=== PATIENT | male | born 1965 | race African-American/Black ===

== ENCOUNTER 2022-02-12 18:57 | Emergency (ER) | payer MEDICAID ==
[~2022-02-12] VITALS: Ht 177.8 cm; Wt 86.2 kg
[2022-02-12 19:03] VITALS: BP 205/76
--- NOTE | 2022-02-12 19:26 | NUR ---
Dr. Ibarra examining patient at [facility].
[2022-02-12 20:03] LABS: BASOPHILS % (AUTO) 0.6 % (0.0-2.0); EOSINOPHILS # (AUTO) 0.1 K/uL (0-0.4); EOSINOPHILS % (AUTO) 1.1 % (0.0-4.0); HEMATOCRIT 44.7 % (36-52); HEMOGLOBIN 15.4 g/dL (12.0-18.0); LYMPHOCYTES # (AUTO) 1.7 K/uL (2.0-11.5); LYMPHOCYTES % (AUTO) 25.6 % (20.5-51.1); MEAN CORPUSCULAR HEMOGLOBIN 33 pg (27-31); MEAN CORPUSCULAR HGB CONC 35 g/dL (33-37); MEAN CORPUSCULAR VOLUME 95.7 fL (80-94); MONOCYTES # (AUTO) 0.4 K/uL (0.8-1.0); MONOCYTES % (AUTO) 6.2 % (1.7-9.3); NEUTROPHILS # (AUTO) 4.4 K/uL (1.8-7.7); NEUTROPHILS % (AUTO) 66.5 % (42.2-75.2); PLATELET COUNT (AUTO) 156 K/uL (140-450); RED BLOOD CELL COUNT(AUTO) 4.67 MIL/uL (4.20-6.10); RED CELL DISTRIBUTION WIDTH 12.9 % (11.6-13.7); WHITE BLOOD COUNT (AUTO) 6.7 K/uL (4.8-10.8)
--- NOTE | 2022-02-12 20:06 | NUR ---
PT IN ROOM 8 VIA EMS
[2022-02-12 20:15] VITALS: BP 188/108
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
[2022-02-12 20:25] LABS: ALBUMIN 3.9 g/dL (3.4-5.0); ANION GAP 13.5 (8-16); ASPARTATE AMINOTRANSFERASE 16 U/L (15-37); CHLORIDE 107 mmol/L (98-107); CREATININE 1.1 mg/dL (0.6-1.3); GFR ARICAN-AMERICAN 89 mL/min (>90); GLUCOSE 107 mg/dL (74-106); POTASSIUM 3.5 mmol/L (3.5-5.1); SODIUM SERUM 145 mmol/L (136-145); TOTAL BILIRUBIN 0.6 mg/dL (0.0-1.0); UREA NITROGEN, BLOOD 17 mg/dL (7-18)
--- NOTE | 2022-02-12 20:29 | NUR ---
NUMBER FOR CALL BACK [phone] NEPHE[employer] [place] PASS NUMBER TO PT, AVAILABLE FOR PICKUP
--- NOTE | 2022-02-12 21:06 | NUR ---
Patient taken to CT scan via gurney.
--- NOTE | 2022-02-12 21:07 | NUR ---
PT TO CT
--- NOTE | 2022-02-12 21:34 | NUR ---
PT BACK FROM CT
[2022-02-12] MEDS ORDERED: KETOROLAC 30 MG/ML VIAL IVP ONE (22:50)
--- NOTE | 2022-02-12 22:59 | NUR ---
XRAY AT BEDSIDE
[2022-02-12] MEDS ORDERED: LID5T TP (23:26)
[2022-02-12] MEDS ORDERED: IBUP-2213 PO (23:26)
--- NOTE | 2022-02-13 00:17 | NUR ---
Patient discharged with v/s stable. Written and verbal after care instructions given and explained. Patient verbalized understanding. Ambulatory with steady gait. All questions addressed prior to discharge. Advised to follow up with PMD.
== END 2022-02-13 00:17 | disposition home or self-care (01) ==
LOC: MED 18:57
DX: S83.91XA Sprain of unspecified site of right knee, initial encounter (principal); S10.91XA Abrasion of unspecified part of neck, initial encounter; V49.88XA Car occupant (driver) (passenger) injured in other specified transport accidents, initial encounter; Y93.89 Activity, other specified; Y92.89 Other specified places as the place of occurrence of the external cause; Y99.8 Other external cause status
CPT/HCPCS: 36415; 70450; 71260; 72125; 73562; 74160; 80053; 84484; 85025; 93005; 96374; 99285; J1885; Q0092; Q9967